=== PATIENT | female | born 1935 | race Hispanic/Latino ===

== ENCOUNTER → 2018-02-25 | Outpatient (CLI) | payer MEDICARE ==
[~2018-02-25] MED LIST: AMLODIPINE BESYL5 MG PO; GABAPENTIN100 MG PO; LEVOTHYROXINE50 MCG PO; MELOXICAM7.5 MG PO; POTASSIUM PO; TRIAMTERENE-HCTZ1 EA PO
== END ==
LOC: CARD 13:32
PROVIDERS: ATTEND Family Medicine
DX: I73.9 Peripheral vascular disease, unspecified (principal)
CPT/HCPCS: 93925